=== PATIENT | male | born 1995 | race African-American/Black ===

== ENCOUNTER 2020-03-25 23:25 | Emergency (ER) | payer OTHER ==
[~2020-03-25] VITALS: Ht 182.9 cm; Wt 59.0 kg
[~2020-03-25 23:25] MED LIST: ALBUTEROL1.25 MG/3 IH; ALL DAY ALLERGY10 M1 PO; PREDNISONE20 MG PO; ROBITUSSIN DM118 M1 PO
== END 2020-03-26 10:45 | disposition home or self-care (01) ==
LOC: ER 23:25
DX: K86.1 Other chronic pancreatitis (principal); Z20.828 Contact with and (suspected) exposure to other viral communicable diseases
CPT/HCPCS: 74177; 76700; Q9965